=== PATIENT | female | born 1940 | race African-American/Black ===

== ENCOUNTER 2016-06-01 22:27 | Emergency (ER) | payer MEDICARE ==
[~2016-06-01] VITALS: Ht 162.6 cm; Wt 66.7 kg
[~2016-06-01 22:27] MED LIST: ACETAZOLAMIDE500 MG ORAL; ALBUTEROL SULFAT2 MG PO; ALBUTEROL2.5 MG/3 M INH; ATORVASTATIN CA20 MG GT; AVASTIN IV; COMBIVENT RESPIM4 GM IH; COZAAR25 MG GT; FIBER0.52 GM PO; HYOSCYAMINE0.375 M1 ORAL; LACTULOSE20 GM/301 GT; LEVSIN-SL0.125 MG GT; LOSARTAN POTASS25 MG ORAL; METFORMIN HCL500 M1 ORAL; OMEPRAZOLE5 GM MC; POTASSIUM CHLO20 ME1 GT; PROSTATE 2.4 C1 EAC1 PO; SENOKOT1 TAB GT; VITAMIN C250 MG ORAL; ZITHROMAX250 MG ORAL
[2016-06-01] MEDS ORDERED: Albuterol ud Inhalation HHN ONE (22:45)
[2016-06-01 23:11] LABS: BASOPHILS % (AUTO) 2.5 % (0.0-2.0); EOSINOPHILS % (AUTO) 9.4 % (0.0-3.0); LYMPHOCYTES % (AUTO) 25.5 % (20.0-45.0); MEAN CORPUSCULAR HEMOGLOBIN 29.6 PG (27.0-31.0); MEAN CORPUSCULAR HGB CONC 30.6 G/DL (32.0-36.0); MEAN CORPUSCULAR VOLUME 97 FL (80-99); MEAN PLATELET VOLUME 8.4 FL (6.5-10.1); NEUTROPHILS % (AUTO) 56.6 % (45.0-75.0); PLATELET COUNT 231 K/UL (150-450); RED BLOOD COUNT 4.15 M/UL (4.20-5.40); RED CELL DISTRIBUTION WIDTH 15.3 % (11.6-14.8); WHITE BLOOD COUNT 8.6 K/UL (4.8-10.8)
--- NOTE | 2016-06-01 23:14 | Emergency Room Report ---
History of Present Illness General Chief Complaint: Dyspnea/Respdistress Source: Patient, Family Member, Medical Record, EMS Present Illness HPI This is a 75-year-old female with multiple medical problem. Does include a hemorrhagic stroke with hemiplegia, COPD, pneumonia, the dependent and feeding tube. She was just discharged from [facility] to home. She is currently being treated for Pseudomonas pneumonia with cefepime. She presents with chief complaint of rest or distress hypoxia. Per her daughter when she to the event with a compressor belly goes up to 10 L, hot and itchiness in the 80 percentile. When she looked it up to blow by with 15 L oxygen oxidation is 97% . Patient has a lot of coughing is secretion. She complaining of short of breath. No fever or chills. No nausea no vomiting. No chest pain. Allergies: Coded Allergies: ATENOLOL (Verified Allergy, Unknown, 06/02/15) LISINOPRIL (Verified Allergy, Unknown, 06/02/15) Uncoded Allergies: ATENOLO (Allergy, Unknown, 06/01/16) LISINAPRIL (Allergy, Unknown, 07/11/15) Patient History Past Medical History: see triage record, old chart reviewed, COPD, pneumonia, CVA/TIA Past Surgical History: other Pertinent Family History: none Social History: Denies: smoking Now: No Immunizations: other Reviewed Nursing Documentation: PMH: Agreed, PSxH: Agreed Nursing Documentation-PMH Past Medical History: No History, Except For Hx Cardiac Problems: No Hx Hypertension: Yes Hx Asthma: Yes - resp. failure Hx COPD: Yes Hx Diabetes: Yes Hx Cerebrovascular Accident: Yes - LEFT Review of Systems Eye: Denies: blurred vision, eye pain ENT: Denies: ear pain, nose congestion, throat swelling Respiratory: Reports: cough, shortness of breath Cardiovascular: Denies: chest pain, palpitations Gastrointestinal: Denies: abdominal pain, diarrhea, nausea, vomiting Musculoskeletal: Denies: back pain, joint pain Skin: Denies: rash Neurological: Denies: headache, numbness Endocrine: Denies: increased thirst, increased urine Hematologic/Lymphatic: Denies: easy bruising All Other Systems: negative except mentioned in HPI Physical Exam Vital Signs Date Time Temp Pulse Resp B/P Pulse Ox O2 Delivery O2 Flow Rate FiO2 06/01/16 22:21 98.1 96 26 174/102 88 T-piece 15.0 vitals with hypoxia and hypotension Sp02 EP Interpretation: reviewed, abnormal General Appearance: well appearing, alert, moderate distress Head: normocephalic, atraumatic Eyes: bilateral eye EOMI, bilateral eye PERRL ENT: hearing grossly normal, normal pharynx Neck: full range of motion, supple, no meningismus, tracheotomy - Lots of clear mucus Respiratory: chest non-tender, respiratory distress, decreased breath sounds, accessory muscle use, rhonchi Cardiovascular #1: regular rate, rhythm, no murmur Gastrointestinal: normal bowel sounds, non tender, no mass, no organomegaly, no bruit, non-distended, other - G-tube normal Musculoskeletal: back normal, normal range of motion Neurologic: alert Psychiatric: mood/affect normal Skin: warm/dry Medical Decision Making Diagnostic Impression: Primary Impression: COPD exacerbation Additional Impressions: Respiratory distress Respiratory failure Qualified Codes: J96.21 - Acute and chronic respiratory failure with hypoxia Ventilator dependent Pneumonia Qualified Codes: J15.1 - Pneumonia due to Pseudomonas ER Course Patient presents with COPD exacerbation. She also recently diagnosed with pseudomonal infection the left lower lung. She's on antibiotics at home already. I see notice of sepsis, dissection, ACS to name a few. Patient much improved after it lasted treatment and steroid. Also got suction. I discussed the case with [facility] full transfer for further treatment. I see no need for new antibiotics since her daughter said is Pseudomonas is sensitive to current therapy. EKG Diagnostic Results Rate: normal Rhythm: NSR ST Segments: no acute changes Rhythm Strip Diag. Results EP Interpretation: yes Rate: 87 Rhythm: NSR, no PVC's, no ectopy Chest X-Ray Diagnostic Results EP Interpretation: Yes Findings: no effusion, no pneumothorax, other - Cardiomegaly. Bilateral atelectasis. Tracheostomy. No pneumothorax. Hiatal hernia. Number of Views: 1 Last Vital Signs Date Time Temp Pulse Resp B/P Pulse Ox O2 Delivery O2 Flow Rate FiO2 06/01/16 22:21 98.1 96 26 174/102 88 T-piece 15.0 Status: improved Disposition: [facility] Condition: Stable VIKASH CHAVARRIA M.D. Jun 01, 2016 23:14
[2016-06-01] MEDS ORDERED: Solu-MEDROL 125mg Inj IVP ONE (23:15)
[2016-06-01 23:19] VITALS: BP 132/78
[2016-06-01 23:25] LABS: INR 1.1 (0.9-1.1); PROTHROMBIN TIME 11.7 SEC (9.30-11.50)
[2016-06-01 23:26] LABS: APPEARANCE,URINE CLEAR; KETONES,URINE NEGATIVE (NEGATIVE); LEUKOCYTE ESTERASE ,URINE 1+ (NEGATIVE); NITRITE,URINE NEGATIVE (NEGATIVE); PH,URINE 8 (4.5-8.0); PROTEIN,URINE 1+ (NEGATIVE); UROBILINOGEN,URINE NORMAL MG/DL (0.0-1.0)
[2016-06-01 23:36] LABS: ALANINE AMINOTRANSFERASE 22 U/L (3-33); ALBUMIN/GLOBULIN RATIO 0.9 (1.0-2.7); ANION GAP 11 (5-15); ASPARTATE AMINO TRANSFERASE 23 U/L (5-40); CALCIUM 9.8 mg/dL (8.6-10.2); CARBON DIOXIDE 34 mEQ/L (20-30); CHLORIDE 98 mEQ/L (98-107); CREATININE 0.6 mg/dL (0.5-0.9); HEMOLYSIS 30; POTASSIUM 3.8 mEQ/L (3.4-4.9); SODIUM 143 mEQ/L (135-145); TOTAL PROTEIN 7.9 g/dL (6.6-8.7); TROPONIN I < 0.30 ng/mL (<=0.30)
[2016-06-01 23:47] LABS: CKMB 2.4 ng/mL (< 3.8)
[2016-06-01 23:50] LABS: BACTERIA,URINE OCCASIONAL /HPF; RBC,URINE TNTC /HPF (0 - 2); SQUAMOUS EPITHELIAL CELL,UR FEW /LPF (NONE/OCC); WBC,URINE 0-2 /HPF (0 - 2)
[2016-06-02 01:21] VITALS: BP 152/72
[2016-06-02 02:13] VITALS: BP 136/73
[2016-06-02 03:04] VITALS: BP 136/78
[2016-06-02 03:06] VITALS: BP 136/78
--- NOTE | 2016-06-02 12:21 | Diagnostic Imaging Report ---
Indication: Dyspnea Comparison: 09/02/15 A single view chest radiograph was obtained. Findings: Heart size is stable. Basilar atelectasis suspected. Tracheostomy noted. Bones are osteopenic. Impression: Basilar atelectasis and/or scarring
--- NOTE | 2016-06-03 15:11 | Cardiology Report ---
APPROVED REPORT EKG Measurement Heart [id number] Sinus tachycardia Otherwise normal ECG
== END 2016-06-02 03:14 | disposition short-term general hospital (02) ==
LOC: EDBD 22:27 → EMR 22:46
DX: J44.1 Chronic obstructive pulmonary disease with (acute) exacerbation (principal); I10 Essential (primary) hypertension; J96.21 Acute and chronic respiratory failure with hypoxia; J15.1 Pneumonia due to Pseudomonas; J45.909 Unspecified asthma, uncomplicated; I69.354 Hemiplegia and hemiparesis following cerebral infarction affecting left non-dominant side; Z88.8 Allergy status to other drugs, medicaments and biological substances; E11.9 Type 2 diabetes mellitus without complications
CPT/HCPCS: 36415; 71010; 80053; 81003; 82550; 82553; 83605; 83880; 84484; 85025; 85610; 85730; 87040; 87181; 93005; 94002; 96374; 99285; J2930

== ENCOUNTER 2017-02-01 21:50 | Emergency (ER) | payer MEDICARE, OTHER ==
[~2017-02-01] VITALS: Ht 162.6 cm; Wt 67.6 kg
[2017-02-01] MEDS ORDERED: ASPIRIN81 MG ORAL (21:54)
[2017-02-01] MEDS ORDERED: REGLAN5 MG ORAL (21:54)
[2017-02-01] MEDS ORDERED: AMOXICILLI200 MG/5 M PO (21:54)
[2017-02-01] MEDS ORDERED: METRONIDAZOLE250 MG ORAL (21:54)
[2017-02-01] MEDS ORDERED: CEFUROXIME250 MG PO (21:54)
[2017-02-01] MEDS ORDERED: CIPRO500 MG PO (21:54)
[2017-02-01] MEDS ORDERED: CATAPRES0.1 MG ORAL (21:54)
--- NOTE | 2017-02-01 21:56 | Emergency Room Report ---
History of Present Illness General Chief Complaint: Dyspnea/Respdistress Source: Family Member, Medical Record, EMS Present Illness HPI Is a 76-year-old female who is a [facility] patient. She is chronically demented via tracheostomy. This is secondary to a stroke. She states at home. She has a history of multiple admission for pneumonia. Her daughter called 911 for respiratory desaturation. According to her observation been dropping to 80 percentile. Better with suction and breathing treatment. Also noticed that there is abdominal distention. Low-grade fever tonight at a 99.8. No nausea vomiting. No chest pain. Similar symptom in the past. Allergies: Coded Allergies: ATENOLOL (Verified Allergy, Unknown, 06/02/15) LISINOPRIL (Verified Allergy, Unknown, 06/02/15) Uncoded Allergies: ATENOLO (Allergy, Unknown, 06/01/16) LISINAPRIL (Allergy, Unknown, 07/11/15) Patient History Past Medical History: see triage record, old chart reviewed, HTN, CVA/TIA Past Surgical History: other Pertinent Family History: none Social History: Denies: smoking Last Menstrual Period: NONE Now: No Immunizations: other Reviewed Nursing Documentation: PMH: Agreed, PSxH: Agreed Nursing Documentation-PMH Hx Cardiac Problems: Yes Hx Hypertension: Yes Hx Asthma: Yes - TB, ARF Hx COPD: Yes Hx Diabetes: Yes Hx Cerebrovascular Accident: Yes - left sided paralysis Review of Systems Eye: Denies: eye pain, blurred vision ENT: Denies: ear pain, nose congestion, throat swelling Respiratory: Reports: shortness of breath, Denies: cough Cardiovascular: Denies: chest pain, palpitations Gastrointestinal: Denies: abdominal pain, diarrhea, nausea, vomiting Musculoskeletal: Denies: back pain, joint pain Skin: Denies: rash Neurological: Denies: headache, numbness Endocrine: Denies: increased thirst, increased urine Hematologic/Lymphatic: Denies: easy bruising All Other Systems: negative except mentioned in HPI Physical Exam Vital Signs Date Time Temp Pulse Resp B/P (MAP) Pulse Ox O2 Delivery O2 Flow Rate FiO2 02/01/17 21:35 98.8 91 22 135/71 100 Mechanical Ventilator vitals unremarkable Sp02 EP Interpretation: reviewed, normal General Appearance: alert, mild distress, Chronically Ill Head: normocephalic, atraumatic Eyes: bilateral eye PERRL, bilateral eye EOMI ENT: hearing grossly normal, normal pharynx Neck: full range of motion, supple, no meningismus, tracheotomy Respiratory: chest non-tender, lungs clear, decreased breath sounds Cardiovascular #1: regular rate, rhythm, no murmur Gastrointestinal: normal bowel sounds, non tender, no mass, no organomegaly, no bruit, other - Distention but soft, decreased bowel sounds Musculoskeletal: back normal, normal range of motion Psychiatric: mood/affect normal Skin: warm/dry Medical Decision Making Diagnostic Impression: Primary Impression: COPD exacerbation Additional Impressions: Abdominal distension (gaseous) Obstipation Respiratory distress Anemia Qualified Codes: D64.9 - Anemia, unspecified ER Course Patient presents with abdominal distention and respiratory distress. No obvious pneumonia on the chest x-ray. She does have significant sigmoid colon distention but no obstruction no mass. I discussed this with the radiologist. I went ahead cover with antibiotics. I place for feeding tube to suction. Patient is otherwise stable for transfer to [facility]. She felt better after breathing treatment. Laboratory Tests Test 02/01/17 22:02 02/01/17 22:51 02/02/17 00:50 White Blood Count 10.2 K/UL (4.8-10.8) Red Blood Count 3.68 M/UL (4.20-5.40) L Hemoglobin 11.5 G/DL (12.0-16.0) L Hematocrit 35.3 % (37.0-47.0) L Mean Corpuscular Volume 96 FL (80-99) Mean Corpuscular Hemoglobin 31.3 PG (27.0-31.0) H Mean Corpuscular Hemoglobin Concent 32.6 G/DL (32.0-36.0) Red Cell Distribution Width 15.3 % (11.6-14.8) H Platelet Count 269 K/UL (150-450) Mean Platelet Volume 7.3 FL (6.5-10.1) Neutrophils (%) (Auto) 56.4 % (45.0-75.0) Lymphocytes (%) (Auto) 31.2 % (20.0-45.0) Monocytes (%) (Auto) 7.0 % (1.0-10.0) Eosinophils (%) (Auto) 3.4 % (0.0-3.0) H Basophils (%) (Auto) 2.1 % (0.0-2.0) H Prothrombin Time 10.8 SEC (9.30-11.50) Prothromb Time International Ratio 1.0 (0.9-1.1) Activated Partial Thromboplast Time 19 SEC (23-33) L Sodium Level 143 mEQ/L (135-145) Potassium Level 4.8 mEQ/L (3.4-4.9) Chloride Level 102 mEQ/L (98-107) Carbon Dioxide Level 26 mEQ/L (20-30) Anion Gap 15 (5-15) Blood Urea Nitrogen 32 mg/dL (7-23) H Creatinine 0.8 mg/dL (0.5-0.9) Estimat Glomerular Filtration Rate mL/min (>60) Glucose Level 135 mg/dL (74-106) H Lactic Acid Level 2.60 mmol/L (0.66-2.22) H Pending Calcium Level 10.2 mg/dL (8.6-10.2) Total Bilirubin 0.2 mg/dL (0.0-1.2) Aspartate Amino Transf (AST/SGOT) 14 U/L (5-40) Alanine Aminotransferase (ALT/SGPT) 10 U/L (3-33) Alkaline Phosphatase 58 U/L (35-104) Total Creatine Kinase 28 U/L (26-140) Creatine Kinase MB < 1.5 ng/mL (< 3.8) Creatine Kinase MB Relative Index Troponin I < 0.30 ng/mL (<=0.30) Total Protein 7.6 g/dL (6.6-8.7) Albumin 4.3 g/dL (3.5-5.2) Globulin 3.3 g/dL Albumin/Globulin Ratio 1.3 (1.0-2.7) Urine Color Pale yellow Urine Appearance Clear Urine pH 8 (4.5-8.0) Urine Specific [place] 1.015 (1.005-1.035) Urine Protein Negative (NEGATIVE) Urine Glucose (UA) Negative (NEGATIVE) Urine Ketones Negative (NEGATIVE) Urine Occult Blood 4+ (NEGATIVE) H Urine Nitrite Negative (NEGATIVE) Urine Bilirubin Negative (NEGATIVE) Urine Urobilinogen Normal MG/DL (0.0-1.0) Urine Leukocyte Esterase Negative (NEGATIVE) Urine RBC 60-80 /HPF (0 - 2) H Urine WBC 0-2 /HPF (0 - 2) Urine Squamous Epithelial Cells Few /LPF (NONE/OCC) Urine Bacteria Few /HPF (NONE) Lab Results Impression labs unremarkable EKG Diagnostic Results Rate: normal Rhythm: NSR ST Segments: no acute changes Rhythm Strip Diag. Results Rhythm Strip Time: 22:15 EP Interpretation: yes Rate: 68 Rhythm: NSR, no PVC's, no ectopy Chest X-Ray Diagnostic Results Chest X-Ray Diagnostic Results : Chest X-Ray Ordered: Yes # of Views/Limited/Complete: 1 View Indication: Shortness of Breath CT/MRI/US Diagnostic Results CT/MRI/US Diagnostic Results : Imaging Test Ordered: CT abdomen and pelvis Impression CT ABDOMEN & PELVIS: Comparison: None. Diffuse colonic prominence with gas filled loops most pronounced in the sigmoid colon. Short segment of mid sigmoid colon is markedly dilated with air to a maximum diameter of 13 cm with transitional zone in the rectum, best seen on series 6 images 7-44. No evidence of volvulus . PEG tube in the stomach. Normal appendix. Numerous bilateral nonobstructing nephroliths. Numerous bilateral renal hypodensities, some of which represent benign cysts and others of which are technically indeterminate but likely represent benign cysts. Dependent atelectasis. Small pericardial effusion. 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 Walters catheter within the urinary bladder. Percutaneous gastrostomy tube. Atherosclerotic vascular disease. Pronounced osteopenia. Multilevel degenerative spine findings. Radiologist: Long Suárez M.D. Last Vital Signs Date Time Temp Pulse Resp B/P (MAP) Pulse Ox O2 Delivery O2 Flow Rate FiO2 02/01/17 21:35 98.8 91 22 135/71 100 Mechanical Ventilator Status: improved Disposition: [facility] Condition: Serious VIKASH CHAVARRIA M.D. Feb 01, 2017 21:56
[2017-02-01] MEDS ORDERED: Albuterol ud Inhalation HHN ONE (22:00)
[2017-02-01 22:36] LABS: BASOPHILS % (AUTO) 2.1 % (0.0-2.0); EOSINOPHILS % (AUTO) 3.4 % (0.0-3.0); LYMPHOCYTES % (AUTO) 31.2 % (20.0-45.0); MEAN CORPUSCULAR HEMOGLOBIN 31.3 PG (27.0-31.0); MEAN CORPUSCULAR HGB CONC 32.6 G/DL (32.0-36.0); MEAN CORPUSCULAR VOLUME 96 FL (80-99); MEAN PLATELET VOLUME 7.3 FL (6.5-10.1); NEUTROPHILS % (AUTO) 56.4 % (45.0-75.0); PLATELET COUNT 269 K/UL (150-450); RED BLOOD COUNT 3.68 M/UL (4.20-5.40); RED CELL DISTRIBUTION WIDTH 15.3 % (11.6-14.8); WHITE BLOOD COUNT 10.2 K/UL (4.8-10.8)
[2017-02-01 22:48] LABS: PROTHROMBIN TIME 10.8 SEC (9.30-11.50)
[2017-02-01 22:58] LABS: ALANINE AMINOTRANSFERASE 10 U/L (3-33); ALBUMIN/GLOBULIN RATIO 1.3 (1.0-2.7); ANION GAP 15 (5-15); ASPARTATE AMINO TRANSFERASE 14 U/L (5-40); CALCIUM 10.2 mg/dL (8.6-10.2); CARBON DIOXIDE 26 mEQ/L (20-30); CHLORIDE 102 mEQ/L (98-107); CREATININE 0.8 mg/dL (0.5-0.9); HEMOLYSIS 41; POTASSIUM 4.8 mEQ/L (3.4-4.9); SODIUM 143 mEQ/L (135-145); TOTAL PROTEIN 7.6 g/dL (6.6-8.7)
[2017-02-01 23:01] LABS: REFLEX LACTIC ACID YES OR NO YES
[2017-02-01 23:09] LABS: CKMB < 1.5 ng/mL (< 3.8)
[2017-02-01 23:12] LABS: TROPONIN I < 0.30 ng/mL (<=0.30)
[2017-02-01 23:16] LABS: APPEARANCE,URINE CLEAR; KETONES,URINE NEGATIVE (NEGATIVE); LEUKOCYTE ESTERASE ,URINE NEGATIVE (NEGATIVE); NITRITE,URINE NEGATIVE (NEGATIVE); PH,URINE 8 (4.5-8.0); PROTEIN,URINE NEGATIVE (NEGATIVE); UROBILINOGEN,URINE NORMAL MG/DL (0.0-1.0)
[2017-02-01 23:37] VITALS: BP 136/89
[2017-02-01 23:39] LABS: RBC,URINE 60-80 /HPF (0 - 2); SQUAMOUS EPITHELIAL CELL,UR FEW /LPF (NONE/OCC); WBC,URINE 0-2 /HPF (0 - 2)
[2017-02-01 23:40] LABS: BACTERIA,URINE FEW /HPF
[2017-02-02 02:58] VITALS: BP 126/89
[2017-02-02 05:24] VITALS: BP 146/72
[2017-02-02 06:47] VITALS: BP 146/72
--- NOTE | 2017-02-02 09:12 | Diagnostic Imaging Report ---
Indication: Abdominal pain Technique: Continuous helical transaxial imaging of the abdomen and pelvis was obtained from the lung bases to the pubic symphysis. No intravenous contrast was administered. Coronal 2-D reformats were also obtained. Total Dose length Product (DLP): [address] Dose Index Volume (CTDIvol): 18 mGy Comparison: none Findings: There is mild posterior basilar atelectasis. There is a small pericardial effusion. Aorta is moderately calcified. Gastrostomy noted. There are calcifications within both kidneys. Much of these may be vascular. Difficult to exclude nonobstructive stones. There is at least one that is almost certainly a nonobstructive stone in the left renal pelvis measuring 8 mm. Other small nonobstructive stones are likely present as well. This gallbladder noted and contracted. Multiple hypodensities noted within the kidneys bilaterally. These may be cysts but not adequately evaluated. No obvious gallstones. Atrophic uterus demonstrated. Walters catheter in good position. No free fluid or free air or evidence of bowel obstruction. The appendix is normal. Bones are osteopenic. Hypertrophied facets and narrowing of intervertebral discs demonstrated. Impression: Distended colon without definite evidence of volvulus. Small pericardial effusion Bilateral nonobstructive renal stones suspected. Most prominent is 8 mm in the left renal pelvis. No hydronephrosis. Gastrostomy and Walters catheter in good position Atherosclerotic disease Spondylosis and generalized osteopenia. Posterior basilar atelectasis. Normal appendix Bilateral renal hypodensities nonspecific The CT scanner at [facility] is accredited by the [employer] and the scans are performed using dose optimization techniques as appropriate to a performed exam including Automatic Exposure control.
--- NOTE | 2017-02-02 11:21 | Diagnostic Imaging Report ---
Indication: Dyspnea Comparison: 06/01/16 A single view chest radiograph was obtained. Findings: Heart size is normal. Tracheostomy noted. Bones are osteopenic. Aorta is mildly calcified. Basilar atelectasis versus scarring noted. Impression: Basilar atelectasis versus scarring
--- NOTE | 2017-02-03 16:24 | Cardiology Report ---
APPROVED REPORT EKG Measurement Heart [id number] Normal sinus rhythm Low voltage QRS Borderline ECG
== END 2017-02-02 06:48 | disposition short-term general hospital (02) ==
LOC: EDBD 21:50 → EMR 22:45
DX: J44.1 Chronic obstructive pulmonary disease with (acute) exacerbation (principal); R14.0 Abdominal distension (gaseous); I31.3 Pericardial effusion (noninflammatory); J98.11 Atelectasis; Z93.1 Gastrostomy status; M85.80 Other specified disorders of bone density and structure, unspecified site; E87.2 Acidosis; D64.9 Anemia, unspecified; R06.00 Dyspnea, unspecified; K59.00 Constipation, unspecified; I10 Essential (primary) hypertension; E11.9 Type 2 diabetes mellitus without complications; I69.854 Hemiplegia and hemiparesis following other cerebrovascular disease affecting left non-dominant side; F03.90 Unspecified dementia, unspecified severity, without behavioral disturbance, psychotic disturbance, mood disturbance, and anxiety; Z93.0 Tracheostomy status
CPT/HCPCS: 36415; 71010; 74176; 80053; 81003; 82550; 82553; 83605; 84484; 85025; 85610; 85730; 87040; 93005; 94002; 94640; 99285; J1956